=== PATIENT | male | born 1975 | race Hispanic/Latino ===

== ENCOUNTER 2020-11-01 23:04 | Emergency (ER) | payer OTHER, SELFPAY ==
[2020-11-01] MEDS ORDERED: HYDROcodone/Acetaminophen 5/325 mg Tablet ONE (23:48)
== END 2020-11-02 00:35 | disposition home or self-care (01) ==
LOC: ERS 23:04 → EDSEX 23:04 → ERS 11-02 00:35
DX: S46.911A Strain of unspecified muscle, fascia and tendon at shoulder and upper arm level, right arm, initial encounter (principal); Y04.8XXA Assault by other bodily force, initial encounter; Z79.899 Other long term (current) drug therapy; I10 Essential (primary) hypertension
CPT/HCPCS: 93005